=== PATIENT | male | born 1960 | race American Indian/Alaskan Native ===

== ENCOUNTER 2017-07-30 11:06 | Outpatient (CLI) | payer BC ==
--- NOTE | 2017-07-30 12:00 | XRay Report ---
Right knee: Pain. There is a small suprapatella effusion. There is a focal contour depression of the anterior articular surface of the medial condyle. The articular surfaces otherwise appear unremarkable. The joint spaces are preserved and the knee is aligned. The bones are well-mineralized. Impression: Suprapatellar effusion. Questionable etiology of medial condylar deformity. Any history of significant trauma?
== END 2017-07-30 11:07 | disposition home or self-care (01) ==
LOC: SPVIMAG 11:06
PROVIDERS: ATTEND Orthopaedic Surgery
DX: M25.461 Effusion, right knee (principal); M25.561 Pain in right knee